=== PATIENT | female | born 1940 | race Caucasian/White ===

== ENCOUNTER 2019-06-21 16:46 | Outpatient (CLI) | payer MEDICARE, SELFPAY ==
--- NOTE | 2019-06-21 17:11 | XRR_ITS ---
PROCEDURE INFORMATION: Exam: XR Left Ribs Exam date and time: 06/21/2019 5:13 PM Age: 78 years old Clinical indication: Other: Posterior left side rib pain; Additional info: Rib pain on left side. PT went to chiropractor with shoulder pain, now has pain anterior scapula pain that radiates to left side posterior lower ribs TECHNIQUE: Imaging protocol: XR Left ribs. Views: 2 views. COMPARISON: No relevant prior studies available. FINDINGS: Bones/joints: Normal. There is osteopenia. Moderate degenerative changes in the shoulder and thoracic spine are noted. Pleural space: There is a small left pleural effusion with left basilar atelectasis versus pneumonitis. On the AP view, it also appears may be some mild right basilar pneumonitis but no definite right pleural effusion. No pneumothorax. Heart/Mediastinum: The heart is enlarged. Soft tissues: Normal. XR/XR ribs LT 2V* [id number] IMPRESSION: 1. No acute bony abnormality. 2. There is a small left pleural effusion with left basilar atelectasis versus pneumonitis.
--- NOTE | 2019-06-21 17:11 | XRR_ITS ---
PROCEDURE INFORMATION: Exam: XR Thoracic Spine, 3 Views Exam date and time: 06/21/2019 5:13 PM Age: 78 years old Clinical indication: Pain in thoracic spine; Without myelpathy or radiculopathy; Additional info: Thoracic spine pain. PT went to chiropractor with shoulder pain, now has pain anterior scapula pain that radiates to left side posterior lower ribs TECHNIQUE: Imaging protocol: XR of the thoracic spine, 3 views. COMPARISON: No relevant prior studies available. FINDINGS: Vertebrae: Normal. No acute fracture. Normal alignment. There is diffuse osteopenia. Moderate diffuse degenerative changes are noted. Soft tissues: Normal. XR/XR thoracic spine 2V [id number] IMPRESSION: Unremarkable radiograph.
== END 2019-06-21 16:47 | disposition home or self-care (01) ==
PROVIDERS: PCP Chiropractor Orthopedic; Visit Provider Chiropractor Orthopedic
DX: M54.6 Pain in thoracic spine (principal); R07.81 Pleurodynia; J90 Pleural effusion, not elsewhere classified
CPT/HCPCS: 71100; 72070